=== PATIENT | female | born 1970 | race Asian ===

== ENCOUNTER 2024-05-16 15:34 | Emergency (ER) | payer MEDICAID ==
[~2024-05-16] VITALS: Ht 152.4 cm; Wt 50.0 kg
[~2024-05-16 15:34] MED LIST: IBUP1TAB15 PO
[2024-05-16 15:46] VITALS: TEMP 98.2
[2024-05-16] MEDS ORDERED: AMOX500C2 PO (17:00)
[2024-05-16] MEDS ORDERED: IBUP-1492 PO (17:00)
[2024-05-16 17:27] VITALS: BP 153/88; PULSE 86; RESP 18
== END 2024-05-17 00:42 | disposition home or self-care (01) ==
LOC: EMS 15:34
DX: H66.41 Suppurative otitis media, unspecified, right ear (principal); M62.838 Other muscle spasm; F17.210 Nicotine dependence, cigarettes, uncomplicated; V49.49XA Driver injured in collision with other motor vehicles in traffic accident, initial encounter; Y92.89 Other specified places as the place of occurrence of the external cause; Y92.410 Unspecified street and highway as the place of occurrence of the external cause; Y99.8 Other external cause status
CPT/HCPCS: 99283; 99406